=== PATIENT | male | born 1955 | race Caucasian/White ===

== ENCOUNTER 2017-12-13 19:28 | Inpatient (IN) | payer OTHER ==
[~2017-12-13] VITALS: Ht 177.8 cm; Wt 79.4 kg
[2017-12-13] MEDS ORDERED: [UNRECOGNIZED DRUG - REMARK] (19:42)
[2017-12-13] MEDS ORDERED: ASPIRIN 325 MG TABLET PO ONE (20:15)
[2017-12-13] MEDS ORDERED: PANTOPRAZOLE SODIUM 40 MG TABLET.DR PO ONE ×2 (20:15→20:34)
[2017-12-13] MEDS ORDERED: MAG HYDROX/AL HYDROX/SIMETH 30 ML LIQUID UDC PO ONE (20:15)
[2017-12-13 20:24] LABS: BASOPHILS % (AUTO) 0.3 % (0.0-2.0); EOSINOPHILS # (AUTO) 0.1 K/uL (0.0-0.7); EOSINOPHILS % (AUTO) 1.2 % (0.0-7.0); HEMATOCRIT 39.9 % (36.7-47.1); HEMOGLOBIN 13.7 g/dL (12.5-16.3); LYMPHOCYTES # (AUTO) 2.2 K/uL (20.0-40.0); LYMPHOCYTES % (AUTO) 30.3 % (20.5-51.5); MEAN CORPUSCULAR HEMOGLOBIN 32.1 uug (23.8-33.4); MEAN CORPUSCULAR HGB CONC 34 g/dL (32.5-36.3); MEAN CORPUSCULAR VOLUME 93.4 fL (73.0-96.2); MONOCYTES # (AUTO) 0.7 K/uL (2.0-10.0); MONOCYTES % (AUTO) 9.4 % (0.0-11.0); NEUTROPHILS # (AUTO) 4.3 K/uL (1.8-8.9); NEUTROPHILS % (AUTO) 58.8 % (38.5-71.5); PLATELET COUNT (AUTO) 179 K/uL (152-348); RED BLOOD CELL COUNT(AUTO) 4.27 MIL/uL (4.06-5.63); WHITE BLOOD COUNT (AUTO) 7.4 K/uL (3.6-10.2)
[2017-12-13] MEDS ORDERED: MAG HYDROX/AL HYDROX/SIMETH 30 ML LIQUID UDC ONE (20:33)
[2017-12-13] MEDS ORDERED: ASPIRIN 325 MG TABLET ONE (20:33)
[2017-12-13 20:35] LABS: CREATININE 1.1 mg/dL (0.6-1.3); POTASSIUM 3.5 mmol/L (3.5-5.1)
--- NOTE | 2017-12-13 20:45 | NUR ---
PT IN BED. PT IS A&OX4. FAMILY IS AT BEDSIDE. EKG IS DONE. LAB DRAWN. AWAITING FURTHER ORDERS.
[2017-12-13 20:47] LABS: BILIRUBIN,DIRECT 0.1 mg/dL (0.0-0.2); BILIRUBIN,TOTAL 0.3 mg/dL (0.2-1.0); TOTAL PROTEIN, SERUM 6.6 g/dL (6.4-8.2)
[2017-12-13] MEDS ORDERED: ACETAMINOPHEN ES 500 MG TABLET PO ONE (22:00)
--- NOTE | 2017-12-13 22:00 | NUR ---
pt c/o left upper back and shoulder continous pain, denies cp/sob, awre with new orders for EKG and pain meds
[2017-12-13] MEDS ORDERED: ACETAMINOPHEN ES 500 MG TABLET ONE (22:26)
[2017-12-13] MEDS ORDERED: TEMAZEPAM 15 MG CAPSULE PO PRN (23:00)
[2017-12-13] MEDS ORDERED: NITROGLYCERIN 0.4 MG/TAB BOTTLE SL ONE (23:00)
[2017-12-13] MEDS ORDERED: HYDROCODONE/APAP 5-325MG TABLET PO PRN (23:00)
[2017-12-13] MEDS ORDERED: ACETAMINOPHEN 325 MG TABLET PO PRN (23:00)
[2017-12-13] MEDS ORDERED: MAGNESIUM HYDROXIDE 30 ML LIQUID UDC PO PRN (23:00)
[2017-12-13] MEDS ORDERED: ONDANSETRON 4 MG/2 ML VIAL IV PRN (23:00)
--- NOTE | 2017-12-13 23:55 | NUR ---
PT IN BED W/ FAMILY AT BEDSIDE. PT DENIES CHEST PAIN, SOB, N/V AT THIS TIME. REPORT CALLED AND SPOKE TO OUMAR CAST.
[2017-12-13 23:58] VITALS: BP 134/80
--- NOTE | 2017-12-14 | NUR ---
RECEIVED PATIENT VIA GURNEY FROM ER. FAMILY PRESENT AT BEDSIDE. PATIENT IS A/O X4. VIETNAMESE SPEAKING, NEEDS PAYABLE MANAGER BUT CAN MAKE SIMPLE NEEDS KNOWN. DENIES CHEST PAIN BUT C/O SLIGHT "DISCOMFORT" IN CHEST. VSS UPON ARRIVAL TO FLOOR. PLACED ON TELE ORDERED, SR WITH 1ST DEGREE AV BLOCK. H/L INTACT AND PATENT, NOTED TO LEFT AC #20 GAUGE. NO RESP. DISTRESS NOTED. ORIENTED PATIENT TO ROOM AND CALL LIGHT. CALL LIGHT IN REACH. ALL NEEDS ATTENDED. WILL CONTINUE TO MONITOR.
[2017-12-14 04:00] VITALS: BP 120/64
--- NOTE | 2017-12-14 06:34 | NUR ---
PATIENT AWAKE IN BED. DENIES ANY CHEST PAIN OR DISCOMFORT. ON TELE SR WITH 1ST DEGREE AVB. VSS. CALL LIGHT IN REACH. ALL NEEDS ATTENDED. WILL CONTINUE TO MONITOR.
[2017-12-14 07:06] LABS: BASOPHILS % (AUTO) 0.4 % (0.0-2.0); EOSINOPHILS # (AUTO) 0.1 K/uL (0.0-0.7); EOSINOPHILS % (AUTO) 2.2 % (0.0-7.0); HEMATOCRIT 39.3 % (36.7-47.1); HEMOGLOBIN 13.6 g/dL (12.5-16.3); LYMPHOCYTES # (AUTO) 1.8 K/uL (20.0-40.0); LYMPHOCYTES % (AUTO) 40.6 % (20.5-51.5); MEAN CORPUSCULAR HEMOGLOBIN 32.9 uug (23.8-33.4); MEAN CORPUSCULAR HGB CONC 35 g/dL (32.5-36.3); MEAN CORPUSCULAR VOLUME 94.8 fL (73.0-96.2); MONOCYTES # (AUTO) 0.6 K/uL (2.0-10.0); NEUTROPHILS % (AUTO) 43.8 % (38.5-71.5); PLATELET COUNT (AUTO) 172 K/uL (152-348); RED BLOOD CELL COUNT(AUTO) 4.15 MIL/uL (4.06-5.63); WHITE BLOOD COUNT (AUTO) 4.5 K/uL (3.6-10.2)
[2017-12-14 07:18] LABS: POTASSIUM 3.8 mmol/L (3.5-5.1)
[2017-12-14 07:56] LABS: THYROID STIMULATING HORMONE 2.738 mIU/mL (0.358-3.740)
--- NOTE | 2017-12-14 08:00 | NUR ---
Pt is in no acute distress. Pt moldovan speaking but able to make his needs known. Pt ambulatory with good gait. Call light is within reach.
[2017-12-14] MEDS: PANTOPRAZOLE SODIUM 40 MG TABLET.DR PO SCH (08:38)
[2017-12-14] MEDS ORDERED: ASPIRIN 81 MG TAB.CHEW PO SCH (09:00)
[2017-12-14 11:34] VITALS: BP 111/64
[2017-12-14 16:09] VITALS: BP 107/75
[2017-12-14] MEDS: METFORMIN HCL 500 MG TABLET PO SCH (18:30)
--- NOTE | 2017-12-14 18:30 | NUR ---
Pt is in no acute distress. Dr grande spoke with family and patient for possible heart cath tomorrow but to be f/u with [facility] case management for insurance coverage. Call light is within reach. Pt denies any c/o any chest pain this shift.
[2017-12-14 19:00] VITALS: BP 122/68
--- NOTE | 2017-12-14 19:43 | NUR ---
RESTING IN BED AT BEGINNING OF THE SHIFT. NO ACUTE DISTRESS NOTED. NEED ATTENDED.WILL MONITOR PATIENT. DENIES ANY CHEST PAINS NOR ANY DISCOMFORT. VOIDING WELL. FOR POSSIBLE HEART CATH IN AM, ACCOUNTING SYSTEMS ANALYST WILL FOLLOW UP WITH DAUGHTER REGARDING INSURANCE PURPOSES ONLY.
[2017-12-14] MEDS ORDERED: IV D5 1/2 NS 1000 ML 1,000 ML IV PRN (21:15)
[2017-12-15] VITALS: BP 134/83
--- NOTE | 2017-12-15 00:57 | NUR ---
Patient refuse IVF's, Explained to patient that he needs it because he is going for a test and needs to be NPO but still patient refuse.Called and daughter and explain that patient needs it .IVF's removed per daughter's request.
[2017-12-15 04:00] VITALS: BP 108/68
[2017-12-15] MEDS: PANTOPRAZOLE SODIUM 40 MG TABLET.DR PO SCH (06:37)
--- NOTE | 2017-12-15 07:42 | NUR ---
RECEIVED SHIFT REPORT FROM KEY MAKER NURSE. PATIENT RESTING COMFORTABLY IN BED AT THIS TIME. NO S/S OF DISTRESS, STABLE CONDITION. PLANNED TO HAVE ANGIOGRAM OR CARDIAC CATH DONE TODAY AT 13:30. NO CONSENT FORM COMPLETED YET BECAUSE UNSURE OF WHICH PROCEDURE DR. NDIAYE WILL PERFORM. ALSO AWAITING INSURANCE CLEARANCE FOR PROCEDURE. WILL FOLLOW UP WITH CASE MANAGEMENT. SLOVENIAN SPEAKING ONLY. A/O. BED IN LOCKED/LOW POSITION, SIDE RAILS UP X2, CALL LIGHT WITHIN REACH. PATIENT AND PATIENT'S FAMILY REFUSED IV FLUIDS. COMFORT/SAFETY WILL BE PROVIDED.
[2017-12-15] MEDS: METFORMIN HCL 500 MG TABLET PO SCH ×2 (08:14→17:20)
[2017-12-15] MEDS: ASPIRIN 325 MG TABLET PO SCH (09:00)
[2017-12-15] MEDS ORDERED: ASPIRIN 81 MG TAB.CHEW PO SCH (09:00)
--- NOTE | 2017-12-15 09:02 | NUR ---
NON-ADMINISTRATION MEDICATION: ASPIRIN - PATIENT PLANNED FOR PROCEDURE (ANGIOGRAM VS CARDIAC CATH) TODAY AT 13:30.
[2017-12-15] MEDS ORDERED: NITR0.4T SL (10:55)
[2017-12-15] MEDS ORDERED: ASPI-605 PO (10:55)
[2017-12-15] MEDS ORDERED: CARV3.12 PO (10:55)
[2017-12-15] MEDS ORDERED: METF500T4 PO (10:55)
[2017-12-15 11:32] VITALS: BP 133/79
[2017-12-15 15:53] VITALS: BP 107/65
--- NOTE | 2017-12-15 18:07 | NUR ---
PATIENT RESTING COMFORTABLY IN BED WITH AT BEDSIDE. PATIENT IS A/OX4, MOSTLY FIJIAN SPEAKING. PATIENT WILL BE NPO AFTER MIDNIGHT TONIGHT FOR PROCEDURE IN THE MORNING. INFORMED PATIENT THAT HE WILL BE PICKED UP BY AMBULANCE AT 0800 (12/16/17) AND PATIENT VERBALIZED UNDERSTANDING. OTHERWISE AT THIS TIME, STABLE CONDITION, NO S/S OF DISTRESS. VITAL SIGNS ARE STABLE. AMBULATORY WITH STEADY GAIT AND ALSO WITH BRP. BED IN LOCKED/LOW POSITION, CALL LIGHT WITHIN REACH. SAFETY/ COMFORT PROVIDED.
[2017-12-15 19:00] VITALS: BP 119/68
--- NOTE | 2017-12-15 20:17 | NUR ---
RESTING COMFORTABLY IN BED. AAOX4 NEEDS ATTENDED. CONTROL SPECIALIST ON PATIENT IN SINUS RHYTHM. DENIES ANY CHEST PAIN NOR ANY DISCOMFORT. NPO AFTER MIDNIGHT. FOR ANGIOGRAM IN AM. WILL MONITOR PATIENT. VOIDING WELL.
[2017-12-16] VITALS: BP 121/68
[2017-12-16 04:00] VITALS: BP 119/69
--- NOTE | 2017-12-16 04:53 | NUR ---
NPO maintained. for angiogram this am. needs attended. will monitor patient. no acute distress noted.voiding well. no complaints of chest pain nor any chest discomfort.
[2017-12-16] MEDS: PANTOPRAZOLE SODIUM 40 MG TABLET.DR PO SCH (06:17)
--- NOTE | 2017-12-16 07:33 | NUR ---
RECEIVED SHIFT REPORT FROM MEDICAL CLAIMS MANAGER NURSE. PATIENT RESTING COMFORTABLY IN BED AT THIS TIME. PT SUPPOSED TO BE TRANSFERRED TO [facility] FOR PROCEDURE THIS MORNING AT 0800 BUT IT IS BEING DELAYED DUE TO SCHEDULING/PLACEMENT ISSUES. OTHERWISE IN STABLE CONDITION, NO S/S OF DISTRESS. WILL FOLLOW UP ON STATUS OF TRANSFER/DISCHARGE. CALL LIGHT WITHIN REACH.
[2017-12-16] MEDS: METFORMIN HCL 500 MG TABLET PO SCH (08:00)
[2017-12-16] MEDS: ASPIRIN 325 MG TABLET PO SCH (09:00)
[2017-12-16 11:55] VITALS: BP 124/82
[2017-12-16 15:50] VITALS: BP 115/76
--- NOTE | 2017-12-16 16:20 | NUR ---
PATIENT DISCHARGED AT THIS TIME IN STABLE CONDITION, NO S/S OF DISTRESS. VITAL SIGNS ARE STABLE. DISCHARGED HOME, DAUGHTER PICKED UP PATIENT. BELONGINGS CHECKLIST CHECKED AND SIGNED BY PATIENT. DISCHARGE INSTRUCTIONS PROVIDED TO PATIENT. PATIENT HAS FOLLOW UP APPOINTMENT WITH OUTPATIENT MANAGER OF OPERATIONS (DR. KUMAR OR DR. GONZALEZ). DATE, TIME, LOCATION, PHONE NUMBER, AND [facility] FINAL CANOE INSPECTOR'S CONTACT INFORMATION PROVIDED TO PATIENT. VERBALIZED TO PATIENT THE IMPORTANCE OF FOLLOWUP APPOINTMENT FOR PROCEDURE. PATIENT'S IV DISCONNECTED, ID BAND TAKEN OFF, TELEMETRY BOX DISCONNECTED FROM PATIENT AND RETURNED CLERK TELEGRAPH SERVICE. PATIENT SAFELY EXITED FLOOR IN SAFE CONDITION WITH DAUGHTER.
== END 2017-12-16 16:30 | disposition home or self-care (01) | DRG 302 ==
LOC: ER 19:29 → TELE 23:37
PROVIDERS: ADMIT Internal Medicine; ATTEND Nurse Practitioner Acute Care
DX: I25.110 Atherosclerotic heart disease of native coronary artery with unstable angina pectoris (principal); I50.33 Acute on chronic diastolic (congestive) heart failure; Z87.891 Personal history of nicotine dependence; E11.9 Type 2 diabetes mellitus without complications
CPT/HCPCS: 36415; 70030-TC; 71045; 84443; 85025; 85730; 93005; 93307; A4663; J7030; J7042